=== PATIENT | female | born 1980 | race Caucasian/White ===

== ENCOUNTER 2020-11-23 12:14 | Emergency (ER) | payer OTHER ==
[~2020-11-23 12:14] MED LIST: KEPPRA250 MG PO
[2020-11-23] MEDS ORDERED: NORCO 5-325 TA1 EACH PO (14:20)
== END 2020-11-23 16:25 | disposition home or self-care (01) ==
LOC: FER 12:14
DX: S22.088A Other fracture of T11-T12 vertebra, initial encounter for closed fracture (principal); M54.5 Low back pain; V43.52XA Car driver injured in collision with other type car in traffic accident, initial encounter; Y92.410 Unspecified street and highway as the place of occurrence of the external cause
CPT/HCPCS: 72125; 72128; 72131; J1885